=== PATIENT | male | born 1955 | race American Indian/Alaskan Native ===

== ENCOUNTER 2018-10-01 13:25 | Emergency (ER) | payer MEDICARE ==
--- NOTE | 2018-10-01 13:54 | Emergency Department Report ---
Blank Doc - Documentation Documentation: This is a 62-year-old male that present swith HTN. STated did not take the me dicatoins that he was supposed to. Denies any headache or complaints. This initial assessment/diagnostic orders/clinical plan/treatment(s) is/are subject to change based on patient's health status, clinical progression and re- assessment by fellow clinical providers in the ED. Further treatment and workup at subsequent clinical providers discretion. Patient/guardians urged not to elope from the ED as their condition may be serious if not clinically assessed and managed. Initial orders include: 1- Patient sent to [facility] for further evaluation and treatment
--- NOTE | 2018-10-01 14:40 | Emergency Department Report ---
ED Recheck HPI - General Chief Complaint: High BP Stated Complaint: HYPERTENSION Time Seen by Provider: 10/01/18 13:53 Source: patient Mode of arrival: Ambulatory Limitations: No Limitations - History of Present Illness Initial Comments: Patient is a pleasant 62-year-old male who was sent to us today from [place]. He is being treated there for depression and bipolar disorder. He also reports a grief response. Today regarding counseling he was talking about his grandchildren and he got emotional upset and his blood pressure went up. Therefore, we will avoid sent him here. Patient is on lisinopril for his blood pressure he took it as morning. He does state that he used to be on a second blood pressure medicine that he obtained from [facility] in [facility] but he does not know the name of that one has not taken it for some time. On arrival to the ER patient's blood pressure was 178/96. He was having no chest pain or shortness of breath no headache or any other complaint. Patient has been monitored now for a couple hours in the emergency room and his vital signs are stable he is asymptomatic. Past medical history HTN GERD bipolar HYPOTHYROIDISM RX LISINOPRIL SYNTHROID METFORMIN ZANTAC SEROQUIEL PCP [facility] [place] - Related Data Previous Rx's Medication Instructions Recorded Last Taken Type Lisinopril [Prinivil] 15 mg PO DAILY #45 tablet 10/01/18 Unknown Rx Allergies Allergy/AdvReac Type Severity Reaction Status Date / Time No Known Allergies Allergy Unverified 10/01/18 13:29 ED Review of Systems ROS: Stated complaint: HYPERTENSION Other details as noted in HPI Comment: All other systems reviewed and negative Constitutional: denies: see HPI Eyes: denies: eye pain ENT: denies: throat pain Respiratory: denies: see HPI, cough Cardiovascular: as per HPI. denies: palpitations, dyspnea on exertion Endocrine: denies: excessive sweating Genitourinary: denies: urgency Musculoskeletal: denies: back pain Skin: denies: rash Neurological: denies: weakness Psychiatric: denies: anxiety Hematological/Lymphatic: denies: as per HPI ED Past Medical Hx - Past Medical History Hx Hypertension: Yes Hx Diabetes: Yes Additional medical history: hypothyroid - Surgical History Past Surgical History?: Yes Additional Surgical History: Shoulder surgery, hip surgery - Family History Family history: no significant - Social History Smoking Status: Current Every Day Smoker Substance Use Type: None - Medications Home Medications: Home Medications Medication Instructions Recorded Confirmed Last Taken Type Lisinopril [Prinivil] 15 mg PO DAILY #45 tablet 10/01/18 Unknown Rx ED Physical Exam - General Limitations: No Limitations, Language Barrier General appearance: alert, in no apparent distress - Head Head exam: Present: atraumatic, normocephalic - Eye Eye exam: Present: normal appearance, PERRL - ENT ENT exam: Present: mucous membranes moist - Neck Neck exam: Present: normal inspection - Respiratory Respiratory exam: Present: normal lung sounds bilaterally - Cardiovascular Cardiovascular Exam: Present: regular rate - GI/Abdominal GI/Abdominal exam: Present: soft - Rectal Rectal exam: Present: deferred - exam: Present: normal inspection - Extremities Exam Extremities exam: Present: normal inspection - Back Exam Back exam: Present: normal inspection - Neurological Exam Neurological exam: Present: alert, oriented X3, CN II-XII intact, normal gait, reflexes normal - Psychiatric Psychiatric exam: Present: normal affect, normal mood - Skin Skin exam: Present: warm, dry, intact ED Course Vital Signs 10/01/18 13:53 Temperature 97.9 F Pulse Rate 82 Respiratory 18 Rate Blood Pressure 178/96 O2 Sat by Pulse 100 Oximetry ED Recheck MDM - Medical Decision Making BP RECHECKED SEE HPI NO SYMPTOMS WILL DC BACK TO [facility] LISINOPRIL DUE TO BEING OFF SECOND MED. PT INSTRUCTED WHEN TO RETURN TO ED Vital Signs 10/01/18 13:53 Temperature 97.9 F Pulse Rate 82 Respiratory 18 Rate Blood Pressure 178/96 O2 Sat by Pulse 100 Oximetry Critical care attestation.: If time is entered above; I have spent that time in minutes in the direct care of this critically ill patient, excluding procedure time. ED Disposition Clinical Impression: HTN (hypertension) Disposition: DC-01 TO HOME OR SELFCARE Is pt being admited?: No Does the pt Need Aspirin: No Condition: Stable Instructions: Hypertension (ED) Additional Instructions: MAY RETURN TO [facility] LISINOPRIL TO 15 MG DAILY- WHICH IS 1.5 OF YOUR CURRENT TABLET MONITOR BP DAILY AND TREND OVER 2 WEEK THEN FOLLOW UP WITH PCP LOCAL PCP REFERRAL GIVEN BELOW Referrals: [facility] [Outside] - 3-5 Days Time of Disposition: 14:49
[2018-10-01] MEDS ORDERED: ZESTRIL PO ONE (14:51)
[2018-10-01 15:04] VITALS: BP 157/84
== END 2018-10-01 15:03 | disposition home or self-care (01) ==
LOC: ED 13:25
DX: I10 Essential (primary) hypertension (principal); F32.9 Major depressive disorder, single episode, unspecified; F31.9 Bipolar disorder, unspecified; E11.9 Type 2 diabetes mellitus without complications; E03.9 Hypothyroidism, unspecified
CPT/HCPCS: 99282

== ENCOUNTER 2019-05-10 08:53 | Emergency (ER) | payer MEDICARE ==
[2019-05-10 08:58] VITALS: BP 136/76
[2019-05-10] MEDS ORDERED: KETOROLAC 60 MG/2 ML INJ IM ONE (09:35)
--- NOTE | 2019-05-10 09:46 | XRay Report ---
RIGHT SHOULDER 3 VIEWS INDICATION / CLINICAL INFORMATION: Right shoulder pain. COMPARISON: None available. FINDINGS: BONES / JOINT(S): There are mild degenerative changes involving the acromioclavicular joint, glenohum eral joint, anterior acromion and greater tuberosity of the humerus. There is no evidence of fracture , dislocation or destructive lesion. SOFT TISSUES: No significant abnormality. ADDITIONAL FINDINGS: The visualized portion of the right lung is clear. IMPRESSION: Degenerative changes without acute abnormality. Signer Name: Milo Garcia MD Signed: 05/10/2019 9:41 AM Workstation Name: [id number]
--- NOTE | 2019-05-10 10:14 | Emergency Department Report ---
ED Upper Extremity Inj HPI - General Chief Complaint: Shoulder Injury Stated Complaint: R ARM PAIN Time Seen by Provider: 05/10/19 09:04 Source: patient Mode of arrival: Ambulatory Limitations: No Limitations - History of Present Illness Initial Comments: This is a 63-year-old male nontoxic, well nourished in appearance, no acute signs of distress presents to the ED with c/o of right shoulder pain 1 day. Patient stated that he wake up this morning with the pains. Patient denies any other trauma. Patient denies any numbness, tingling, fever, chills, nausea, vomiting, chest pain, shortness of breath, headache, stiff neck. Patient denies any joint swelling or joint redness. Patient denies decreased range of motion. Patient denies any allergies. MD Complaint: Injury to:: right, shoulder -: This morning Other Extremity Injury: Shoulder: Right Other Injuries: none Severity scale (0 -10): 8 Improves With: immobilization Worsens With: movement of extremity Associated Symptoms: denies other symptoms. denies: weakness, numbness, neck pain, suspects foreign body, nausea/vomiting, heard/felt popping sensat - Related Data Previous Rx's Medication Instructions Recorded Last Taken Type Lisinopril [Prinivil] 15 mg PO DAILY #45 tablet 10/01/18 Unknown Rx Cyclobenzaprine HCl [Flexeril 5 MG 5 mg PO QHS PRN #10 tab 05/10/19 Unknown Rx TAB] Ibuprofen [Motrin] 600 mg PO Q8H PRN #20 tablet 05/10/19 Unknown Rx Allergies Allergy/AdvReac Type Severity Reaction Status Date / Time No Known Allergies Allergy Unverified 10/01/18 13:29 ED Review of Systems ROS: Stated complaint: R ARM PAIN Other details as noted in HPI Constitutional: denies: chills, fever Eyes: denies: eye pain, eye discharge, vision change ENT: denies: ear pain, throat pain Respiratory: denies: cough, shortness of breath, wheezing Cardiovascular: denies: chest pain, palpitations Endocrine: no symptoms reported Gastrointestinal: denies: abdominal pain, nausea, diarrhea Genitourinary: denies: urgency, dysuria Musculoskeletal: arthralgia. denies: back pain, joint swelling Skin: denies: rash, lesions Neurological: denies: headache, weakness, paresthesias Psychiatric: denies: anxiety, depression Hematological/Lymphatic: denies: easy bleeding, easy bruising ED Past Medical Hx - Past Medical History Previous Medical History?: Yes Hx Hypertension: Yes Hx Diabetes: Yes Additional medical history: hypothyroid - Surgical History Past Surgical History?: Yes Additional Surgical History: Shoulder surgery, hip surgery - Social History Smoking Status: Current Every Day Smoker Substance Use Type: Alcohol, Cocaine, Marijuana, Prescribed - Medications Home Medications: Home Medications Medication Instructions Recorded Confirmed Last Taken Type Lisinopril [Prinivil] 15 mg PO DAILY #45 tablet 10/01/18 Unknown Rx Cyclobenzaprine HCl [Flexeril 5 MG 5 mg PO QHS PRN #10 tab 05/10/19 Unknown Rx TAB] Ibuprofen [Motrin] 600 mg PO Q8H PRN #20 tablet 05/10/19 Unknown Rx ED Physical Exam - General Limitations: No Limitations General appearance: alert, in no apparent distress - Head Head exam: Present: atraumatic, normocephalic - Neck Neck exam: Present: normal inspection, full ROM. Absent: tenderness, meningism us, lymphadenopathy - Cardiovascular Cardiovascular Exam: Present: regular rate, normal rhythm - Extremities Exam Extremities exam: Present: normal inspection, full ROM, tenderness, normal capillary refill. Absent: joint swelling - Expanded Upper Extremity Exam Right General: Present: normal inspection Shoulder Exam: Present: normal inspection, full ROM, tenderness (deltoid muscle area). Absent: swelling, abrasion, laceration, ecchymosis, deformity, crepidus, dislocation, erythema, tenderness over AC joint Upper Arm exam: Present: normal inspection, full ROM. Absent: tenderness Elbow exam: Present: normal inspection, full ROM. Absent: tenderness Forearm Wrist exam: Present: normal inspection, full ROM. Absent: tenderness Hand Wrist exam: Present: normal inspection, full ROM. Absent: tenderness Vascular: Present: vascular compromise, normal capillary refill - Back Exam Back exam: Present: normal inspection, full ROM, paraspinal tenderness (right cerivcal muscle paraspinal area). Absent: tenderness, CVA tenderness (R), CVA tenderness (L), muscle spasm, vertebral tenderness, rash noted - Neurological Exam Neurological exam: Present: alert, oriented X3, normal gait - Psychiatric Psychiatric exam: Present: normal affect, normal mood - Skin Skin exam: Present: warm, dry, intact, normal color. Absent: rash ED Course Vital Signs 05/10/19 08:55 Temperature 98.5 F Pulse Rate 106 H Respiratory 18 Rate Blood Pressure 136/76 O2 Sat by Pulse 96 Oximetry - Reevaluation(s) Reevaluation #1: 05/10/19 10:15 Patient is speaking in full sentences with no signs of distress noted. ED Medical Decision Making - Medical Decision Making This is a 63-year-old female that presents with right shoulder strain. Patient is stable and was examined by me. I referred patient to an orthopedic doctor for further evaluation for possible MRI. X-ray has been obtained and dictated by the radiologist. Patient is notified of the x-ray report with noted by the patient. Patient does have normal gait with no tenderness and no joint swelling. No ecchymosis. no joint redness or swelling. Not warm to touch. No signs of cellulites present. Patient was instructed to RICE therapy. Patient received Toradol for pain whcih he stated symptoms are resolving and subsiding. Patient is discharged with Motrin and Flexer. At time of discharge, the patient does not seem toxic or ill in appearance. No acute signs of distress noted. Patient agrees to discharge treatment plan of care. No further questions noted by the patient. Critical care attestation.: If time is entered above; I have spent that time in minutes in the direct care of this critically ill patient, excluding procedure time. ED Disposition Clinical Impression: Muscle strain Right shoulder strain Qualifiers: Encounter type: initial encounter Qualified Code(s): S46.911A - Strain of unspecified muscle, fascia and tendon at shoulder and upper arm level, right arm, initial encounter Disposition: - TO HOME OR SELFCARE Is pt being admited?: No Does the pt Need Aspirin: No Condition: Stable Instructions: Muscle Strain (ED) Additional Instructions: Follow-up with a orthopedic doctor in 3-5 days or if symptoms worsen and continue return to emergency room as soon as possible. Prescriptions: Cyclobenzaprine HCl [Flexeril 5 MG TAB] 5 mg PO QHS PRN #10 tab PRN Reason: Muscle Spasm Ibuprofen [Motrin] 600 mg PO Q8H PRN #20 tablet PRN Reason: Pain Referrals: PRIMARY MD NORRIS [Primary Care Provider] - 3-5 Days JORDAN LANGE MD [Staff Physician] - 3-5 Days [facility] [Outside] - 3-5 Days Forms: Work/School Release Form(ED)
== END 2019-05-10 10:24 | disposition home or self-care (01) ==
LOC: ED 08:53
DX: S46.911A Strain of unspecified muscle, fascia and tendon at shoulder and upper arm level, right arm, initial encounter (principal); I10 Essential (primary) hypertension; E11.9 Type 2 diabetes mellitus without complications; E03.9 Hypothyroidism, unspecified; F17.200 Nicotine dependence, unspecified, uncomplicated; F12.10 Cannabis abuse, uncomplicated; Z98.890 Other specified postprocedural states; Z79.899 Other long term (current) drug therapy; X58.XXXA Exposure to other specified factors, initial encounter; Y93.89 Activity, other specified; Y92.89 Other specified places as the place of occurrence of the external cause; Y99.8 Other external cause status
CPT/HCPCS: 73030; 96372; 99283; J1885